=== PATIENT | male | born 1990 | race Caucasian/White ===

== ENCOUNTER 2023-07-25 09:21 | Emergency (ER) | payer OTHER ==
[2023-07-25 09:25] VITALS: BMI 27.4
[2023-07-25] MEDS ORDERED: morphine SULFATE 4 MG/ML VIAL ONE (10:07)
[2023-07-25] MEDS: morphine SULFATE 4 MG/ML VIAL IVPUSH ONE (10:19)
[2023-07-25 10:27] LABS: BASO % 0.4 % (0-2.0); EOS % 1.6 % (0-4.5); HEMATOCRIT 42.6 % (35.4-49); HEMOGLOBIN 14.5 GM/dL (11.7-16.9); LYMPH % 25.5 % (8-40); MCH 30.3 pg (25.7-33.7); MCHC 34.1 g/dl (32.0-35.9); MEAN CELL VOLUME 88.7 fl (80-96); MONO % 5.3 % (3.8-10.2); NEUT % 67.2 % (42.8-82.8); PLATELET COUNT 312 10^3/uL (134-434); RDW 13.2 % (11.9-15.9); WHITE BLOOD COUNT 8.1 K/mm3 (4.0-10.0)
[2023-07-25] MEDS ORDERED: ONDANSETRON 4 MG/2 ML VIAL ONE (10:32)
[2023-07-25] MEDS ORDERED: KETOROLAC TROMETHAMINE 30 MG/1 ML VIAL ONE (10:32)
[2023-07-25 10:35] LABS: INR 1.02 (0.83-1.09); PROTHROMBIN TIME (PATIENT) 11.8 SEC (9.7-13.0)
[2023-07-25] MEDS: KETOROLAC TROMETHAMINE 30 MG/1 ML VIAL IVPUSH ONE (10:42)
[2023-07-25] MEDS: ONDANSETRON 4 MG/2 ML VIAL IVPUSH ONE (10:42)
[2023-07-25 10:45] LABS: POTASSIUM 4.5 mmol/L (3.5-5.1)
[2023-07-25 10:47] LABS: CALCIUM 9.4 mg/dL (8.5-10.1)
[2023-07-25 10:48] LABS: ALBUMIN 4.3 g/dl (3.4-5.0); BLOOD UREA NITROGEN 17.2 mg/dL (7-18); MAGNESIUM 2.1 mg/dL (1.8-2.4)
[2023-07-25 10:51] LABS: CREATININE 0.8 mg/dL (0.55-1.3)
[2023-07-25 10:52] LABS: BILIRUBIN,TOTAL 0.6 mg/dL (0.2-1); TOT PROT 8.3 g/dl (6.4-8.2)
[2023-07-25 11:00] LABS: EPI CELLS 15 /uL (0-25.1); HYALINE CASTS 0 /uL (0-3.1); PH,URINE 6.5 (5.0-8.0); URINE APPEARANCE CLEAR; URINE BACTERIA 4 /uL (0-1359); URINE BILIRUBIN NEGATIVE (NEGATIVE); URINE COLOR YELLOW; URINE GLUCOSE (UA) NEGATIVE (NEGATIVE); URINE KETONE NEGATIVE (NEGATIVE); URINE LEUK ESTERASE NEGATIVE (NEGATIVE); URINE NITRITE NEGATIVE (NEGATIVE); URINE PROTEIN NEGATIVE (NEGATIVE); URINE RBC 759 /uL (0-23.9); URINE UROBILINOGEN 0.2 mg/dL (0.2-1.0); URINE WBC 7 /uL (0-25.8)
[2023-07-25 11:34] LABS: LACTIC ACID 2.2 mmol/L (0.4-2.0)
[2023-07-25] MEDS: LACTATED RINGERS SOLUTION 1000 ML INFUS.BAG IV ONE (11:49)
[2023-07-25] MEDS ORDERED: TAMSULOSIN HCL 0.4 MG CAP ONE (15:05)
[2023-07-25] MEDS: TAMSULOSIN HCL 0.4 MG CAP PO ONE (15:09)
[2023-07-25] MEDS: SODIUM CHLORIDE 0.9% 500 ML INFUS.BAG IV ONE (15:09)
[2023-07-25 16:30] VITALS: BP 122/74; PULSE 61; RESP 20; TEMP 98.2
== END 2023-07-25 16:47 | disposition home or self-care (01) ==
LOC: JER 09:21
PROC: 3E033NZ Introduction of Analgesics, Hypnotics, Sedatives into Peripheral Vein, Percutaneous Approach (ICD-10-PCS; principal; 2023-07-25)
PROC: 3E033GC Introduction of Other Therapeutic Substance into Peripheral Vein, Percutaneous Approach (ICD-10-PCS; 2023-07-25)
PROC: 3E033GC Introduction of Other Therapeutic Substance into Peripheral Vein, Percutaneous Approach (ICD-10-PCS; 2023-07-25)
DX: R10.31 Right lower quadrant pain (principal); R11.2 Nausea with vomiting, unspecified; N13.2 Hydronephrosis with renal and ureteral calculous obstruction; X50.0XXA Overexertion from strenuous movement or load, initial encounter; Y99.0 Civilian activity done for income or pay
CPT/HCPCS: 36415; 74177-TC; 80053; 81003; 83605; 83735; 85025; 85610; 85730; 86850; 86900; 86901; 87086; 99285-25; Q9967